=== PATIENT | female | born 1985 | race Hispanic/Latino ===

== ENCOUNTER 2020-09-24 11:45 | Emergency (ER) | payer SELFPAY ==
--- NOTE | 2020-09-24 14:07 | ER ---
Nurse's Notes [facility] Name: Brigid Maurice Age: 34 yrs Sex: Female : 1985 Arrival Date: 09/24/2020 Time: 11:47 Bed Waiting Private MD: Diagnosis: Presentation: 09/24 11:58 Chief complaint: Patient states: Constant, non-radiating chest pain x 3 days with SOB, jl7 hurts more with inspiration. Coronavirus screen: Client denies travel out of the [place] in the last 14 days. shortness of breath, Client presents with at least one sign or symptom that may indicate coronavirus-19. Standard/surgical mask placed on the client. Provider contacted for isolation considerations. Ebola Screen: No symptoms or risks identified at this time. Initial Sepsis Screen: Does the patient meet any 2 criteria? No. Patient's initial sepsis screen is negative. Does the patient have a suspected source of infection? No. Patient's initial sepsis screen is negative. Risk Assessment: Do you want to hurt yourself or someone else? Patient reports no desire to harm self or others. Onset of symptoms was September 21, 2020. Care prior to arrival: None. 11:58 Method Of Arrival: Ambulatory [facility] 11:58 Acuity: BRENDAN 3 jl7 Triage Assessment: 12:06 General: Appears in no apparent distress. uncomfortable, Behavior is calm, cooperative. jl7 Pain: Complains of pain in anterior aspect of left upper chest Pain does not radiate. Pain currently is 10 out of 10 on a pain scale. Quality of pain is described as sharp, Pain began 2-3 days ago. Is continuous. Respiratory: Reports shortness of breath at rest Airway is patent Respiratory effort is even, unlabored, Respiratory pattern is regular, symmetrical, Onset: The symptoms/episode began/occurred x 3 days, the patient has mild shortness of breath. WATCH CASER: 12:06 LMP 08/23/2020 jl7 Historical: - Allergies: 12:06 PENICILLINS; jl7 - Home Meds: 12:06 None [Active]; jl7 - PMHx: 12:06 None; jl7 - PSHx: 12:06 abdominal sx; jl7 - Immunization history:: Adult Immunizations not up to date. - Social history:: Smoking status: Patient denies any tobacco usage or history of. Vital Signs: 11:58 BP 105 / 61; Pulse 75; Resp 17; Temp 97.6; Pulse Ox 100% ; Weight 54.43 kg; Height 5 jl7 ft. 2 in. (157.48 cm); Pain 10/10; 11:58 Body Mass Index 21.95 (54.43 kg, 157.48 cm) jl7 ED Course: 11:47 Patient arrived in ED. ag5 12:06 Triage completed. jl7 12:06 Arm band placed on right wrist. 7 13:13 Douglas Goodson PA is PHCP. farheen 13:13 Jonah Craft MD is Attending Physician. [facility] 14:06 Patient's name was called from ER lobby. No response. Unable to locate patient. Will jl disposition as left without being seen by a provider. Administered Medications: No medications were administered Outcome: 14:07 Patient left the ED. jl7 Signatures: Douglas Goodson PA PA jmm Leal, Jahala, RN RN jl7 Aron Ji [facility]
[2020-09-25 10:51] VITALS: BP 105/61; TEMP 97.6; O2SAT 100
== END 2020-09-24 14:07 | disposition left against medical advice (07) ==
LOC: ER 11:45
DX: Z53.21 Procedure and treatment not carried out due to patient leaving prior to being seen by health care provider (principal)
CPT/HCPCS: 93005; 99281

== ENCOUNTER 2020-10-20 13:28 | Emergency (ER) | payer SELFPAY ==
[2020-10-20 15:02] LABS: SARS-COV-2 RT PCR NEGATIVE (NEGATIVE)
[2020-10-20 15:53] LABS: Absolute Lymphocytes (CBC) 1.7 K/uL (0.7-4.9); Basophils % 0.5 % (0-1.3); Lymphocytes % 31.4 % (15.3-44.8); MPV 9.7 fL (7.6-11.3); RBC Red Blood Cell Count 4.26 M/uL (3.86-4.86)
[2020-10-20 16:00] LABS: BUN Blood Urea Nitrogen 10 mg/dL (7-18); Bicarbonate 28 mmol/L (21-32); Glucose Level 78 mg/dL (74-106); Potassium 3.6 mmol/L (3.5-5.1); Sodium Level 142 mmol/L (136-145)
[2020-10-20] MEDS ORDERED: KETOROLAC 30 MG/ML INJ ONE (16:31)
[2020-10-20] MEDS ORDERED: METOCLOPRAMIDE 10 MG/2mL INJ ONE (16:31)
[2020-10-20] MEDS ORDERED: NA CHLORIDE 0.9% 1,000 ML ONE (16:31)
[2020-10-20] MEDS ORDERED: DIPHENHYDRAMINE 50 MG/ML VIAL ONE (16:32)
--- NOTE | 2020-10-20 17:20 | EDPHYS ---
Physician Documentation [facility] Name: Brigid Maurice Age: 34 yrs Sex: Female : 1985 Arrival Date: 10/20/2020 Time: 13:34 Bed 24 Private MD: Mando Magallanes W ED Physician Cristian Marvin HPI: 10/20 16:38 This 34 yrs old Female presents to ER via Ambulatory with complaints of kb Headache. 16:38 The patient complains of pain to the forehead. The patient describes the headache as kb constant. Onset: The symptoms/episode began/occurred yesterday. Associated signs and symptoms: Pertinent positives: dizziness. Severity of symptoms: At its worst the pain was mild, moderate, in the emergency department the pain is unchanged. Headache History: Denies prior headaches. The symptoms are alleviated by nothing. the symptoms are aggravated by nothing. The patient has not experienced similar symptoms in the past. The patient has not recently seen a physician. Pt reports headache, decreased appetite, fatigue, lightheadedness since yesterday. Historical: - Allergies: 13:46 PENICILLINS; ss - Home Meds: 13:46 None [Active]; ss - PMHx: 13:46 None; ss - PSHx: 13:46 abdominal sx; ss - Immunization history:: Adult Immunizations not up to date. - Social history:: Smoking status: Patient denies any tobacco usage or history of. ROS: 16:37 Cardiovascular: Negative for chest pain, palpitations, and edema, Respiratory: Negative kb for shortness of breath, cough, wheezing, and pleuritic chest pain, Abdomen/GI: Negative for abdominal pain, nausea, vomiting, diarrhea, and constipation, Back: Negative for injury and pain, MS/Extremity: Negative for injury and deformity, Skin: Negative for injury, rash, and discoloration. 16:37 Neuro: Positive for dizziness, headache. 16:37 Constitutional: Positive for fatigue, poor PO intake. kb Exam: 16:38 Constitutional: This is a well developed, well nourished patient who is awake, alert, kb and in no acute distress. Head/Face: Normocephalic, atraumatic. Chest/axilla: Normal chest wall appearance and motion. Nontender with no deformity. No lesions are appreciated. Cardiovascular: Regular rate and rhythm with a normal S1 and S2. No gallops, murmurs, or rubs. Normal PMI, no JVD. No pulse deficits. Respiratory: Lungs have equal breath sounds bilaterally, clear to auscultation and percussion. No rales, rhonchi or wheezes noted. No increased work of breathing, no retractions or nasal flaring. Abdomen/GI: Soft, non-tender, with normal bowel sounds. No distension or tympany. No guarding or rebound. No evidence of tenderness throughout. Skin: Warm, dry with normal turgor. Normal color with no rashes, no lesions, and no evidence of cellulitis. MS/ Extremity: Pulses equal, no cyanosis. Neurovascular intact. Full, normal range of motion. Neuro: Awake and alert, GCS 15, oriented to person, place, time, and situation. Cranial nerves II-XII grossly intact. Motor strength 5/5 in all extremities. Sensory grossly intact. Cerebellar exam normal. Normal gait. Vital Signs: 13:44 BP 113 / 73; Pulse 67; Resp 14; Temp 98.2(TE); Pulse Ox 99% on R/A; Weight 54.43 kg; ss Height 5 ft. 2 in. (157.48 cm); Pain 7/10; 15:45 BP 105 / 78 Supine; Pulse 58; vg1 15:47 BP 119 / 85 Sitting; Pulse 58; vg1 15:49 BP 128 / 89 Standing; Pulse 63; vg1 16:00 BP 131 / 89; Pulse 67; Resp 16; Pulse Ox 100% on R/A; vg1 17:00 BP 114 / 81; Pulse 66; Resp 16; Pulse Ox 100% on R/A; vg1 13:44 Body Mass Index 21.95 (54.43 kg, 157.48 cm) Abigail Coma Score: 16:38 Eye Response: spontaneous(4). Verbal Response: oriented(5). Motor Response: obeys kb commands(6). Total: 15. MDM: 14:35 Patient medically screened. kb 16:38 Data reviewed: vital signs, nurses notes. Data interpreted: Pulse oximetry: on room air kb is 99 %. Interpretation: normal. 17:19 Counseling: I had a detailed discussion with the patient and/or guardian regarding: the kb historical points, exam findings, and any diagnostic results supporting the discharge/admit diagnosis, lab results, the need for outpatient follow up, a family practitioner, to return to the emergency department if symptoms worsen or persist or if there are any questions or concerns that arise at home. Response to treatment: the patient's symptoms have resolved after treatment, the patient's pain is gone. 10/20 15:02 Order name: COVID-19/FLU A+B; Complete Time: 15:04 EDMS 10/20 15:13 Order name: CBC with Diff; Complete Time: 16:16 kb 10/20 15:13 Order name: Basic Metabolic Panel; Complete Time: 16:05 kb 10/20 15:13 Order name: IV Start; Complete Time: 15:40 kb 10/20 15:13 Order name: Orthostatics; Complete Time: 16:08 kb Administered Medications: 16:31 Drug: NS 0.9% 1000 ml Route: IV; Rate: 1000 ml; Site: right antecubital; vg1 17:55 Follow up: IV Status: Completed infusion vg1 16:31 Drug: TORadol 30 mg Route: IVP; Site: right antecubital; vg1 17:55 Follow up: Response: No adverse reaction; Pain is decreased vg1 16:31 Drug: Reglan 10 mg Route: IVP; Site: right antecubital; vg1 17:55 Follow up: Response: No adverse reaction vg1 16:31 Drug: Benadryl 12.5 mg Route: IVP; Site: right antecubital; vg1 17:55 Follow up: Response: No adverse reaction vg1 Disposition: 18:41 Co-signature as Attending Physician, Cristian Marvin MD I agree with the assessment and [facility] plan of care. Disposition: 10/20/20 17:20 Discharged to Home. Impression: Headache. - Condition is Stable. - Discharge Instructions: General Headache Without Cause, [id number]. - Medication Reconciliation Form, Thank You Letter, Antibiotic Education, Prescription Opioid Use form. - Follow up: Emergency Department; When: As needed; Reason: Worsening of condition. Follow up: Private Physician; When: 2 - 3 days; Reason: Recheck today's complaints, Continuance of care, Re-evaluation by your physician. Signatures: Dispatcher [employer] EDLawanda Zaragoza, MARKETING PROGRAMS SPECIALIST-C MARISA-Ckb YonCristian MD MD cha Smirch, Shelby, RN RN Jade Ochoa RN RN vg1 Corrections: (The following items were deleted from the chart) 14:16 13:50 Influenza Screen (A \T\ B)+BA.LAB.BRZ ordered. EDMS EDMS 14:16 13:50 CORONAVIRUS+MR.LAB.BRZ ordered. EDMS EDMS 16:38 16:37 Constitutional: Negative for fever, chills, and weight loss, Cardiovascular: kb Negative for chest pain, palpitations, and edema, Respiratory: Negative for shortness of breath, cough, wheezing, and pleuritic chest pain, Abdomen/GI: Negative for abdominal pain, nausea, vomiting, diarrhea, and constipation, Back: Negative for injury and pain, MS/Extremity: Negative for injury and deformity, Skin: Negative for injury, rash, and discoloration, kb 17:58 17:20 10/20/2020 17:20 Discharged to Home. Impression: Headache. Condition is Stable. vg1 Forms are Medication Reconciliation Form, Thank You Letter, Antibiotic Education, Prescription Opioid Use. Follow up: Emergency Department; When: As needed; Reason: Worsening of condition. Follow up: Private Physician; When: 2 - 3 days; Reason: Recheck today's complaints, Continuance of care, Re-evaluation by your physician. kb
--- NOTE | 2020-10-20 17:20 | ER ---
Nurse's Notes [facility] Name: Brigid Maurice Age: 34 yrs Sex: Female : 1985 Arrival Date: 10/20/2020 Time: 13:34 Bed 24 Private MD: Mando Magallanes W Diagnosis: Headache Presentation: 10/20 13:44 Chief complaint: Patient states: headache, fatigue, decreased appetite and ss lightheadedness that began yesterday. Coronavirus screen: Client denies travel out of the [place] in the last 14 days. Client presents with at least one sign or symptom that may indicate coronavirus-19. Standard/surgical mask placed on the client. Ebola Screen: Patient denies exposure to infectious person. Patient denies travel to an Ebola-affected area in the 21 days before illness onset. Initial Sepsis Screen: Does the patient meet any 2 criteria? No. Patient's initial sepsis screen is negative. Does the patient have a suspected source of infection? No. Patient's initial sepsis screen is negative. Risk Assessment: Do you want to hurt yourself or someone else? Patient reports no desire to harm self or others. Onset of symptoms was October 19, 2020. 13:44 Method Of Arrival: Ambulatory ss 13:44 Acuity: BRENDAN 3 ss Historical: - Allergies: 13:46 PENICILLINS; ss - Home Meds: 13:46 None [Active]; ss - PMHx: 13:46 None; ss - PSHx: 13:46 abdominal sx; ss - Immunization history:: Adult Immunizations not up to date. - Social history:: Smoking status: Patient denies any tobacco usage or history of. Screenin:40 Abuse screen: Denies threats or abuse. Nutritional screening: No deficits noted. vg1 Tuberculosis screening: No symptoms or risk factors identified. Fall Risk None identified. Assessment: 15:40 General: Appears in no apparent distress. comfortable, Behavior is calm, cooperative. vg1 15:40 Pain: Complains of pain in headache. Pain currently is 9 out of 10 on a pain scale. vg1 Pain began 2-3 days ago. Neuro: Level of Consciousness is awake, alert, obeys commands, Oriented to person, place, time, situation. Neuro: Reports dizziness, since for about 2 days. Cardiovascular: Patient's skin is warm and dry. Respiratory: Airway is patent Respiratory effort is even, unlabored, Respiratory pattern is regular, symmetrical. GI: Reports nausea, loss of appetite. : No signs and/or symptoms were reported regarding the genitourinary system. EENT: No signs and/or symptoms were reported regarding the EENT system. Derm: Skin is intact, is healthy with good turgor. Musculoskeletal: Circulation, motion, and sensation intact. 16:50 Reassessment: Patient appears in no apparent distress at this time. Patient and/or vg1 family updated on plan of care and expected duration. Pain level reassessed. Patient is alert, oriented x 3, equal unlabored respirations, skin warm/dry/pink. Patient states feeling better. 17:56 Reassessment: No changes from previously documented assessment. vg1 Vital Signs: 13:44 BP 113 / 73; Pulse 67; Resp 14; Temp 98.2(TE); Pulse Ox 99% on R/A; Weight 54.43 kg; ss Height 5 ft. 2 in. (157.48 cm); Pain 7/10; 15:45 BP 105 / 78 Supine; Pulse 58; vg1 15:47 BP 119 / 85 Sitting; Pulse 58; vg1 15:49 BP 128 / 89 Standing; Pulse 63; vg1 16:00 BP 131 / 89; Pulse 67; Resp 16; Pulse Ox 100% on R/A; vg1 17:00 BP 114 / 81; Pulse 66; Resp 16; Pulse Ox 100% on R/A; vg1 13:44 Body Mass Index 21.95 (54.43 kg, 157.48 cm) ss Paxinos Coma Score: 16:38 Eye Response: spontaneous(4). Verbal Response: oriented(5). Motor Response: obeys kb commands(6). Total: 15. ED Course: 13:34 Patient arrived in ED. ag5 13:34 Mando Magallanes MD is Private Physician. ag5 13:45 Triage completed. ss 13:46 Arm band placed on right wrist. ss 13:48 Lawanda Holman FNP-C is [facility]. kb 13:48 Cristian Marvin MD is Attending Physician. kb 15:03 Jade Madden, TYSON is Primary Nurse. vg1 15:35 Initial lab(s) drawn, by me, sent to lab. Inserted saline lock: 20 gauge in right jp3 antecubital area, using aseptic technique. Blood collected. 15:35 Patient maintains SpO2 saturation greater than 95% on room air. jp3 15:39 Bed in low position. Call light in reach. Side rails up X 1. Verbal reassurance given. jp3 Pulse ox on. NIBP on. 17:57 No provider procedures requiring assistance completed. IV discontinued, intact, vg1 bleeding controlled, No redness/swelling at site. Pressure dressing applied. Administered Medications: 16:31 Drug: NS 0.9% 1000 ml Route: IV; Rate: 1000 ml; Site: right antecubital; vg1 17:55 Follow up: IV Status: Completed infusion vg1 16:31 Drug: TORadol 30 mg Route: IVP; Site: right antecubital; vg1 17:55 Follow up: Response: No adverse reaction; Pain is decreased vg1 16:31 Drug: Reglan 10 mg Route: IVP; Site: right antecubital; vg1 17:55 Follow up: Response: No adverse reaction vg1 16:31 Drug: Benadryl 12.5 mg Route: IVP; Site: right antecubital; vg1 17:55 Follow up: Response: No adverse reaction vg1 Outcome: 17:20 Discharge ordered by MD. santoyo 17:57 Discharged to home ambulatory. vg1 17:57 Condition: stable 17:57 Discharge instructions given to patient, Instructed on discharge instructions, follow up and referral plans. Demonstrated understanding of instructions, follow-up care. 17:58 Patient left the ED. vg1 Signatures: Lawanda Holman, KIANAC COMEDIAN-Brisa Campos, RN RN Royer Little 3 Aron Ji Jade Kurtz, RN RN vg1
[2020-10-20 18:03] VITALS: TEMP 98.2
[2020-10-20 18:07] VITALS: O2SAT 100
[2020-10-20 18:08] VITALS: BP 114/81
== END 2020-10-20 17:58 | disposition home or self-care (01) ==
LOC: ER 13:28
DX: R51.9 Headache, unspecified (principal); Z20.822 Contact with and (suspected) exposure to COVID-19; Z88.0 Allergy status to penicillin
CPT/HCPCS: 0240U; 36415; 80048; 85025; 96361; 96374; 96375; 99284; J1200; J2765; J7030

== ENCOUNTER 2021-09-04 16:31 | Inpatient (IN) | payer SELFPAY ==
[2021-09-04 17:58] LABS: Basophils % 0.6 % (0-1.3); Hematocrit 41.3 % (36.0-45.0); Lymphocytes % 34.5 % (15.3-44.8); MPV 8.7 fL (7.6-11.3); RBC Red Blood Cell Count 4.73 M/uL (3.86-4.86)
[2021-09-04 18:19] LABS: ALT/SGPT 27 U/L (12-78); AST/SGOT 22 U/L (15-37); Albumin 3.9 g/dL (3.4-5.0); Alkaline Phosphatase 65 U/L (45-117); BUN Blood Urea Nitrogen 11 mg/dL (7-18); Bicarbonate 27 mmol/L (21-32); Bilirubin Direct < 0.1 mg/dL (0-0.2); Bilirubin Total 0.2 mg/dL (0.2-1.0); Glucose Level 86 mg/dL (74-106); Lipase 148 U/L (73-393); Potassium 3.3 mmol/L (3.5-5.1); Protein, Total 7.9 g/dL (6.4-8.2); Sodium Level 141 mmol/L (136-145)
--- NOTE | 2021-09-04 18:52 | RAD REPORT ---
EXAM DESCRIPTION: CTAbdomen Pelvis W Contrast - 09/04/2021 6:40 pm CLINICAL HISTORY: ABD PAIN COMPARISON: No comparisons TECHNIQUE: CT of the abdomen and pelvis was performed. All CT scans are performed using dose optimization technique as appropriate and may include automated exposure control or mA/KV adjustment according to patient size. FINDINGS: Lower chest: No acute abnormality. Liver: No acute abnormality or suspicious lesions. Biliary: Cholelithiasis. Stomach: No significant focal abnormality. Duodenum: No significant focal abnormality. Pancreas: No significant abnormality. Spleen: No significant abnormality. Adrenal: No suspicious lesions. Kidney/ureter: No hydronephrosis. No renal calculi. Retroperitoneum: No retroperitoneal adenopathy. Vascular: No aneurysm. Bowel: No significant focal abnormality. Normal appendix. Peritoneum: No ascites or free air. Bladder: Grossly unremarkable. Reproductive: No adnexal masses. Bones: No acute fracture. Other: n/a IMPRESSION: No acute intra-abdominal or pelvic finding. Normal appendix.
[2021-09-04 19:25] LABS: SARS-COV-2 RT PCR NEGATIVE (NEGATIVE)
[2021-09-04 19:51] LABS: Urine Blood Trace-intact (Negative); Urine Glucose Negative (Negative); Urine Protein Negative (Negative)
[2021-09-04] MEDS ORDERED: FAMOTIDINE 20 MG/2 ML VIAL IV ONE (20:23)
[2021-09-04] MEDS ORDERED: MORPHINE 2 MG/ML SYR ONE ×3 (20:23→22:45)
[2021-09-04] MEDS ORDERED: ONDANSETRON 4 MG/2 ML VIAL ONE (20:23)
[2021-09-04] MEDS ORDERED: NA CHLORIDE 0.9% 1,000 ML ONE (20:24)
--- NOTE | 2021-09-04 21:34 | RAD REPORT ---
EXAM DESCRIPTION: US - Abdomen Exam Limited - 09/04/2021 9:09 pm CLINICAL HISTORY: RUQ;Abd pain COMPARISON: Abdomen Pelvis W Contrast dated 09/04/2021 FINDINGS: Cholelithiasis is present. The family consumer science teacher reported a positive sonographic Malin's sign. The gallbladder wall measures 3 millimeters and is borderline thickened. The gallbladder is relativel y decompressed, however. The common bile duct is normal in caliber measuring 2 millimeters . IMPRESSION: Cholelithiasis. A positive sonographic Malin's sign is present which is sensitive but n onspecific for acute cholecystitis. Correlate with laboratory values and symptoms. If there is persis tent clinical concern, could consider HIDA scan.
[2021-09-04] MEDS ORDERED: Levofloxacin500mg IV 500 MG/100 ML BAG IV ONE (21:58)
[2021-09-04] MEDS ORDERED: METRONIDAZOLE 500mg IVPB 500 MG/100 ML BAG IV ONE (21:59)
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
[2021-09-05] MEDS ORDERED: ONDANSETRON 4 MG/2 ML VIAL IV PRN (00:12)
[2021-09-05] MEDS ORDERED: ACETAMINOPHEN 500 MG TAB PO PRN (00:12)
[2021-09-05] MEDS ORDERED: POTASSIUM CL SA 10 MEQ TAB PO ONE (00:13)
[2021-09-05 00:32] VITALS: BMI 19.5
[2021-09-05] MEDS: NA CHLORIDE 0.9% 1,000 ML IV SCH ×3 (00:57→21:23)
[2021-09-05 04:00] LABS: Basophils % 0.6 % (0-1.3); Hematocrit 35.4 % (36.0-45.0); Lymphocytes % 37.4 % (15.3-44.8); MPV 8.8 fL (7.6-11.3); RBC Red Blood Cell Count 4.01 M/uL (3.86-4.86)
[2021-09-05] MEDS: MORPHINE 2 MG/ML SYR IV PRN ×2 (04:10→08:41)
[2021-09-05 04:31] LABS: ALT/SGPT 21 U/L (12-78); AST/SGOT 16 U/L (15-37); Alkaline Phosphatase 46 U/L (45-117); BUN Blood Urea Nitrogen 6 mg/dL (7-18); Bicarbonate 25 mmol/L (21-32); Bilirubin Total 0.3 mg/dL (0.2-1.0); Glucose Level 83 mg/dL (74-106); Magnesium 2.1 mg/dL (1.8-2.4); Phosphorus 2.7 mg/dL (2.5-4.9); Protein, Total 6.4 g/dL (6.4-8.2); Sodium Level 140 mmol/L (136-145)
[2021-09-05] MEDS: METRONIDAZOLE 500mg IVPB 500 MG/100 ML BAG IV SCH ×3 (05:44→16:46)
[2021-09-05] MEDS ORDERED: BUPIVACAINE 0.5% PF 10 ML VIAL ONE ×2 (08:49→11:14)
[2021-09-05] MEDS ORDERED: LIDOCAINE 1% MPF 5 ML VIAL ONE (09:02)
[2021-09-05] MEDS ORDERED: dexAMETHasone 4 MG/ML VIAL ONE (09:02)
[2021-09-05] MEDS ORDERED: propofoL 200 MG/20 ML VIAL IV ONE (09:02)
[2021-09-05] MEDS ORDERED: NEOSTIGMINE 1 MG/ML -5 ML ONE (09:02)
[2021-09-05] MEDS ORDERED: MIDAZOLAM HCL 2 MG/2 ML INJ ONE (09:02)
[2021-09-05] MEDS ORDERED: GLYCOPYRROLATE 0.2 MG/ML SYR ONE (09:02)
[2021-09-05] MEDS ORDERED: FENTANYL CITR 100 MCG/2 ML ONE (09:02)
[2021-09-05] MEDS ORDERED: Ringers Lactate 1,000 ML IV ONE ×2 (09:03→11:14)
[2021-09-05] MEDS ORDERED: ROCURONIUM 50 MG/5 ML VIAL IV ONE (09:03)
[2021-09-05] MEDS ORDERED: KETOROLAC 30 MG/ML INJ ONE (09:03)
[2021-09-05] MEDS ORDERED: CIPROFLOXACIN 400mg IV 400 MG/200 ML BAG IV ONE (09:40)
--- NOTE | 2021-09-05 10:55 | P.OP ---
Location Director: Patrick SCHOFIELD Preoperative diagnosis: Acute Cholecystitis and Cholelithiasis Postoperative diagnosis: same with extensive adhesions Primary procedure: Lap Heaven, possible Open Anesthesia: General Estimated blood loss: min Specimen: GB Findings: as above Complications: None Transferred to: Recovery Room Condition: Good
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
[2021-09-05] MEDS ORDERED: MEPERIDINE HCL 25 MG/ML SYR ONE (11:18)
--- NOTE | 2021-09-05 11:18 | OP ---
Date of Procedure: 09/05/2021 Surgeon: Michael Reynoso MD Reducing Machine Operator: Patrick Julien, surgical orderly certified. Postoperative Diagnoses: Acute cholecystitis and cholelithiasis. Postoperative Diagnoses: Acute cholecystitis and cholelithiasis with extensive adhesions. Procedure Performed: Laparoscopic cholecystectomy and lysis of adhesions. Estimated Blood Loss: Minimal. Specimen: Gallbladder. Finding: As above. Anesthesia: General. Complications: None. Disposition: The patient tolerated the procedure in stable condition and taken to Recovery in good g eneral condition. Procedure In Detail: The patient was brought to the OR and placed in supine position. General anest hesia begun. The patient was prepped and draped in usual sterile fashion. Marcaine 0.5% was infiltr ated locally. A 15-blade was used to make a 1 cm right upper quadrant epigastric incision just to th e right of midline because the patient had previous exploratory laparotomy and had a midline scar, so I tried to avoid adhesions possible. Subsequently, the subcutaneous tissue divided. Fascia identif ied and divided. A #1 Vicryl stay suture was placed. Peritoneal cavity entered with sharp and blunt dissection. A 12 mm trocar was placed into the peritoneal cavity and then laparoscopy revealed exte nsive adhesions in the right upper quadrant as well as in the midline. A 5 mm trocar was placed in t he right upper quadrant and then LigaSure was utilized to take down all the adhesions and then anothe r 5 mm trocar was placed in the right paramedian region below the umbilicus and the camera was switch ed to that port and then more to lyse the adhesion was done to expose the gallbladder. The patient a lso has received adhesions as well. They were taken down with cautery. Bleeding was controlled with cautery. The fundus was finally identified and there were findings consistent with acute cholecysti tis. Fundus retracted superiorly. Infundibulum was identified and retracted inferolaterally. Cysti c duct and cystic artery were clearly identified with blunt dissection. Clips were placed. Both str uctures were divided. Cautery was used to remove the gallbladder from the liver bed. Bleeding on th e liver bed was controlled with cautery. Gallbladder was retrieved through the umbilicus via the epi gastric wounds via EndoCatch bag and then right upper quadrant examined and irrigated. Effluent colin r. No evidence of bleeding or bile leakage appreciated. Subsequently, all trocars were removed unde r direct vision. Stay sutures were tied to each other across the fascial defect. Subcutaneous tissu e was irrigated. Bleeding controlled with cautery. A 3-0 chromic used to approximate the subcutaneo us tissue and close the skin. Sterile dressing applied. The patient [facility]. JUAN/MELQUIADES Voice ID: [id number] Report ID: [id number]
[2021-09-05] MEDS ORDERED: ONDANSETRON 4 MG/2 ML VIAL ONE (11:22)
[2021-09-05] MEDS: ONDANSETRON 4 MG/2 ML VIAL IV PRN (11:23)
[2021-09-05] MEDS ORDERED: HYDROMORPHONE HCL 1 MG/ML INJ ONE (11:31)
[2021-09-05] MEDS ORDERED: PROMETHAZINE INJ 25 MG/ML AMP ONE (11:31)
[2021-09-05] MEDS: HYDROMORPHONE HCL 1 MG/ML INJ IV PRN ×4 (11:38→21:22)
--- NOTE | 2021-09-05 12:51 | P.PN ---
Date of Service: 09/05/21 Subjective: Continues with abdominal pain, and nausea No significant change, temporary relief with morphine Awaiting go to the OR this morning. ROS: 10 point ROS as noted above, otherwise negative Physical exam GEN: Alert, oriented, appears somewhat uncomfortable HEENT: Normal conjunctiva, sclera anicteric CV: Regular rate and rhythm, no edema Pulm: Nonlabored respirations on room air ABD: Moderate tenderness in the right upper quadrant, no rebound MSK: No joint tenderness Integumentary: No rashes Neuro: Normal speech, normal affect Problem List Symptomatic cholelithiasis, possible acute cholecystitis N.p.o., IV fluids IV antibiotics General surgery consulted, plan to take patient to the OR this morning SCDs for now Pain medication as needed VTE: SCDs Code: Full Dispo: anticipate dc home in 1-2 days Time Spent Managing Pts Care (In Minutes): 35
[2021-09-05] MEDS ORDERED: CEPACOL LOZENGES PO PRN (13:00)
[2021-09-05] MEDS ORDERED: INFLUENZA VACCINE (for 6+ mo) 0.5 ML DOSE IMVAC ONE (18:00)
[2021-09-05] MEDS: HYDROCODONE/APAP 7.5/325 MG TAB PO PRN (21:21)
[2021-09-05] MEDS: Levofloxacin 750mg IV 750 MG/150 ML BAG IV SCH (21:24)
[2021-09-06] MEDS: HYDROMORPHONE HCL 1 MG/ML INJ IV PRN ×5 (01:05→22:13)
[2021-09-06] MEDS: METRONIDAZOLE 500mg IVPB 500 MG/100 ML BAG IV SCH ×3 (01:07→17:58)
[2021-09-06 04:19] LABS: Absolute Lymphocytes (CBC) 1.7 K/uL (0.7-4.9); Basophils % 0.3 % (0-1.3); Hematocrit 35.3 % (36.0-45.0); Lymphocytes % 21.5 % (15.3-44.8); MPV 9.1 fL (7.6-11.3); RBC Red Blood Cell Count 3.96 M/uL (3.86-4.86)
[2021-09-06] MEDS: NA CHLORIDE 0.9% 1,000 ML IV SCH ×3 (05:35→16:12)
[2021-09-06] MEDS: HYDROCODONE/APAP 7.5/325 MG TAB PO PRN ×3 (05:48→18:06)
--- NOTE | 2021-09-06 06:14 | P.PN ---
Date of Service: 09/06/21 Subjective: Continues with pain in the epigastrium, similar to preoperative pain Slight nausea with sips of water No flatus, urinating without issue ROS: 10 point ROS as noted above, otherwise negative Physical exam GEN: Alert, oriented, appears uncomfortable HEENT: Normal conjunctiva, sclera anicteric CV: Regular rate and rhythm, no edema Pulm: Nonlabored respirations on room air ABD: Moderate tenderness in the epigastrium, surgical dressing C/D/I Neuro: Normal speech, normal affect Problem List acute cholecystitis s/p lap emilie Patient continues with pain, continue pain medication as needed Continue clear liquid diet, IV fluids Pain may be secondary to amount of lysis of adhesions, possibly from the insufflation Possibility of retained stone as well Check LFTs later today, expect slight increase in AST/ALT, if T bili or alk phos elevated will discuss with surgery Repeat in a.m. as well Dispo: Anticipate DC home in the next 1-2 days
--- NOTE | 2021-09-06 09:17 | PN ---
Date of Progress Note: 09/06/2021 Subjective: She is awake, alert, complaining of upper abdominal pain, tolerating some clear liquids. Requiring IV parenteral pain management at this time. No nausea or vomiting. Bowels are stable. Afebrile. Abdomen is soft. No peritonitis. Minimal tenderness in the epigastrium, right upper quadrant. Assessment: Status post laparoscopic cholecystectomy and lysis of adhesions. Recommendation: As patient is requiring parenteral pain medicine and had a lot of scar tissue in her belly, I would recommend that we continue pain management currently as needed, and encourage ambulat ion and incentive spirometry. Advance diet as tolerated and hopefully discharge in 24-48 hours. /MODL Voice ID: [id number] Report ID: [id number]
[2021-09-06] MEDS: ONDANSETRON 4 MG/2 ML VIAL IV PRN ×2 (11:59→22:12)
[2021-09-06 17:59] LABS: ALT/SGPT 32 U/L (12-78); AST/SGOT 39 U/L (15-37); Albumin 2.9 g/dL (3.4-5.0); Alkaline Phosphatase 39 U/L (45-117); BUN Blood Urea Nitrogen 4 mg/dL (7-18); Bicarbonate 25 mmol/L (21-32); Bilirubin Total 0.3 mg/dL (0.2-1.0); Glucose Level 101 mg/dL (74-106); Lipase 40 U/L (73-393); Potassium 3.4 mmol/L (3.5-5.1); Protein, Total 6.1 g/dL (6.4-8.2); Sodium Level 141 mmol/L (136-145)
[2021-09-06] MEDS: Levofloxacin 750mg IV 750 MG/150 ML BAG IV SCH (23:18)
[2021-09-07] MEDS ORDERED: PROMETHAZINE INJ 25 MG/ML AMP IM ONE (01:08)
[2021-09-07] MEDS: METRONIDAZOLE 500mg IVPB 500 MG/100 ML BAG IV SCH ×2 (01:16→09:33)
[2021-09-07 02:48] VITALS: O2SAT 99
[2021-09-07] MEDS: NA CHLORIDE 0.9% 1,000 ML IV SCH (05:15)
[2021-09-07 05:21] LABS: Absolute Lymphocytes (CBC) 1.2 K/uL (0.7-4.9); Basophils % 0.3 % (0-1.3); Hematocrit 32.3 % (36.0-45.0); Lymphocytes % 18.9 % (15.3-44.8); MPV 8.6 fL (7.6-11.3); RBC Red Blood Cell Count 3.67 M/uL (3.86-4.86)
[2021-09-07 05:48] LABS: ALT/SGPT 33 U/L (12-78); AST/SGOT 33 U/L (15-37); Albumin 2.8 g/dL (3.4-5.0); Alkaline Phosphatase 39 U/L (45-117); BUN Blood Urea Nitrogen 2 mg/dL (7-18); Bicarbonate 23 mmol/L (21-32); Bilirubin Total 0.4 mg/dL (0.2-1.0); Glucose Level 92 mg/dL (74-106); Magnesium 1.9 mg/dL (1.8-2.4); Potassium 3.8 mmol/L (3.5-5.1); Sodium Level 142 mmol/L (136-145)
[2021-09-07] MEDS ORDERED: POTASSIUM CL SA 10 MEQ TAB PO ONE (09:00)
[2021-09-07] MEDS: HYDROMORPHONE HCL 1 MG/ML INJ IV PRN ×2 (10:41→14:35)
--- NOTE | 2021-09-07 11:39 | PN ---
Date of Progress Note: 09/07/2021 Subjective: The patient is awake, alert. Pain is better, tolerating diet, ambulating. Pain control led on p.o. pain medications. Afebrile. We will recommend discharge for this patient. Objective: Vitals: Stable, afebrile. Abdomen: Benign. Dressing clean, dry, and intact. Assessment: Status post lap emilie. Plan: The patient is cleared from a surgery point of view for discharge. Please note the LFTs were essentially within normal limits. The patient to follow up with me in a week. Discharge instruction s given. /MODL Voice ID: [id number] Report ID: [id number]
--- NOTE | 2021-09-07 13:02 | P.DS ---
Admission Date: 09/06/21 Discharge Date: 09/07/21 Disposition: ROUTINE DISCHARGE Discharge Condition: GOOD Reason for Admission: cholelithiasis Consultations: General Surgery-Dr. Reynoso. Procedures: Lap cholecystectomy - Problems (1) Biliary colic Current Visit: Yes Status: Acute (2) Acute cholecystitis Current Visit: Yes Status: Acute Brief History of Present Illness: Ms. Maurice is a 35 yo F who presents with one week of 10/10 diffuse abdominal pain, localizing to the epigastric area after eating. She also reported night sweats, chills, nausea, vomiting, diarrhea, and lightheadedness and poor oral intake. Positive Malin sign and presence of gallstones on US. General surgery Dr. Reynoso was informed who recomended lap cholecystectomy. Patient hospitalized for further management. Hospital Course: Patient admitted to the medical floor and started on IV antibiotics-Flagyl and Levaquin. Patient seen by general surgery Dr. Reynoso who performed lap cholecystectomy and lysis of adhesions. Patient was managed postop as inpatient for pain management. She initially did not tolerate diet after the surgery. She required significant amount of IV opiates for pain control. Her symptoms improved and she later tolerated liquid diet. Patient seen in follow-up by general surgery Dr. Reynoso today and deemed stable for discharge. Vital Signs/Physical Exam: Temp Pulse Resp BP Pulse Ox 98.5 F 65 18 109/58 L 100 09/07/21 11:16 09/07/21 11:16 09/07/21 11:16 09/07/21 11:16 09/07/21 11:16 General: Alert, In no apparent distress HEENT: Mucous membr. moist/pink Neck: Supple, JVD not distended Respiratory: Clear to auscultation bilaterally, Normal air movement Cardiovascular: No edema, Regular rate/rhythm, Normal S1 S2 Gastrointestinal: Soft and benign, Non-distended, Tenderness (Moderate-mostly at the laparoscopic wound sites) Musculoskeletal: No swelling Integumentary: No rashes Neurological: Normal speech, Normal strength at 5/5 x4 extr Laboratory Data at Discharge: WBC 6.30 K/uL (4.3-10.9) D 09/07/21 05:01 Hgb 11.0 g/dL (12.0-15.0) L 09/07/21 05:01 Hct 32.3 % (36.0-45.0) L 09/07/21 05:01 Plt Count 134 K/uL (152-406) L 09/07/21 05:01 Sodium 142 mmol/L (136-145) 09/07/21 05:01 Potassium 3.8 mmol/L (3.5-5.1) 09/07/21 05:01 BUN 2 mg/dL (7-18) L 09/07/21 05:01 Creatinine 0.43 mg/dL (0.55-1.3) L 09/07/21 05:01 Glucose 92 mg/dL (74-106) 09/07/21 05:01 Phosphorus 2.7 mg/dL (2.5-4.9) 09/05/21 03:44 Magnesium 1.9 mg/dL (1.8-2.4) 09/07/21 05:01 Total Bilirubin 0.4 mg/dL (0.2-1.0) 09/07/21 05:01 AST 33 U/L (15-37) 09/07/21 05:01 ALT 33 U/L (12-78) 09/07/21 05:01 Alkaline Phosphatase 39 U/L (45-117) L 09/07/21 05:01 Lipase 40 U/L (73-393) L 09/06/21 17:26 Home Medications: NK [No Home Meds] 09/05/21 Physician Discharge Instructions: May shower Keep steri-strips on at all times Diet: Regular Activity: No lifting more than 10 lbs Followup: NONE,NONE [Primary Care Provider] - Michael Reynoso MD [ACTIVE - CAN ADMIT] - 1 Week Time spent managing pt's care (in minutes): 35
[2021-09-07 13:58] VITALS: BP 108/74; TEMP 98.3
== END 2021-09-07 17:29 | disposition home or self-care (01) | DRG 418 ==
LOC: ER 16:31 → ERHOLD 22:05 → 2ND 09-05 00:11 → OBSVTOIN 09-06 07:43
PROVIDERS: ADMIT Hospitalist; ATTEND Internal Medicine
PROC: 0DNW4ZZ Release Peritoneum, Percutaneous Endoscopic Approach (ICD-10-PCS; 2021-09-05)
PROC: 0FT44ZZ Resection of Gallbladder, Percutaneous Endoscopic Approach (ICD-10-PCS; principal; 2021-09-05 09:30)
DX: K80.00 Calculus of gallbladder with acute cholecystitis without obstruction (principal); K80.42 Calculus of bile duct with acute cholecystitis without obstruction; Z23 Encounter for immunization; Z88.0 Allergy status to penicillin; Z98.51 Tubal ligation status; Z88.5 Allergy status to narcotic agent; Z20.822 Contact with and (suspected) exposure to COVID-19
CPT/HCPCS: 0240U; 36415; 74177; 76705; 80048; 80053; 80076; 81003; 81025; 83690; 83735; 84100; 85025; 86308; 88304; 90471; 93005; 94010; 94760; 99285; G0378; J0744; J1100; J1170; J2175; J2250; J2270; J2405; J2550; J2704; J2710; J3010; J7030; J7120; Q2035; Q9967

== ENCOUNTER 2022-07-05 08:13 | Emergency (ER) | payer BC, SELFPAY ==
[2022-07-05] MEDS ORDERED: NA CHLORIDE 0.9% 1,000 ML ONE (08:50)
[2022-07-05] MEDS ORDERED: ONDANSETRON 4 MG/2 ML VIAL ONE (08:50)
[2022-07-05] MEDS ORDERED: FAMOTIDINE 20 MG/2 ML VIAL IV ONE (08:50)
[2022-07-05 09:15] LABS: Absolute Lymphocytes (CBC) 1.6 K/uL (0.7-4.9); Hematocrit 38.1 % (36.0-45.0); Lymphocytes % 32.7 % (15.3-44.8); MCV 88.3 fL (80-100); MPV 8.8 fL (7.6-11.3); RBC Red Blood Cell Count 4.31 M/uL (3.86-4.86)
[2022-07-05] MEDS ORDERED: MORPHINE 4 MG/ML SYR ONE (09:29)
[2022-07-05 09:53] LABS: Albumin 3.6 g/dL (3.4-5.0); Bilirubin Total 0.5 mg/dL (0.2-1.0); Protein, Total 7.2 g/dL (6.4-8.2)
[2022-07-05 10:00] LABS: Urine Blood Negative (Negative); Urine Glucose Negative (Negative); Urine Protein Negative (Negative)
[2022-07-05 10:14] LABS: Urine Mucus Slight /HPF (None Seen); Urine RBC <5 /HPF (None Seen)
--- NOTE | 2022-07-05 10:51 | RAD REPORT ---
EXAM DESCRIPTION: CTAbdomen Pelvis W Contrast - 07/05/2022 10:28 am CLINICAL HISTORY: RUQ pain COMPARISON: Abdomen Pelvis W Contrast dated 09/04/2021 TECHNIQUE: CT of the abdomen and pelvis was performed with IV contrast. All CT scans are performed using dose optimization technique as appropriate and may include automated exposure control or mA/KV adjustment according to patient size. FINDINGS: Lower chest: No acute abnormality. Liver: Periportal edema. Biliary: Cholecystectomy. Mild intrahepatic biliary ductal dilatation. The common bile duct measures 7 millimeters. This has increased from prior. Previously measured under 6 millimeters. Stomach: No significant focal abnormality. Duodenum: No significant focal abnormality. Pancreas: No significant abnormality. Spleen: No significant abnormality. Adrenal: No suspicious lesions. Kidney/ureter: No hydronephrosis. No renal calculi. Retroperitoneum: No retroperitoneal adenopathy. Vascular: No aneurysm. Bowel: No significant focal abnormality. Normal appendix. Peritoneum: Small volume of pelvic free fluid. Bladder: Grossly unremarkable. Reproductive: No adnexal masses. Bones: No acute fracture. Other: n/a IMPRESSION: Increased intra and extrahepatic biliary ductal dilatation. The patient is status post c holecystectomy. Correlate with LFTs. MRCP could further evaluate if there is concern for choledocholi thiasis. Normal appendix. Free fluid in the pelvis which is likely physiologic.
[2022-07-05] MEDS ORDERED: HYDROMORPHONE HCL 1 MG/ML INJ ONE (11:50)
[2022-07-05 12:42] LABS: SARS-CoV-2 Antigen Rapid Res Negative (Negative)
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
[2022-07-05] MEDS ORDERED: PROMETHAZINE INJ 25 MG/ML AMP ONE (16:06)
[2022-07-07 21:20] VITALS: TEMP 98.4
[2022-07-07 21:31] VITALS: BP 108/77; O2SAT 99
== END 2022-07-05 16:32 | disposition short-term general hospital (02) ==
LOC: ER 08:13
DX: R10.11 Right upper quadrant pain (principal); Z20.822 Contact with and (suspected) exposure to COVID-19; Z88.0 Allergy status to penicillin
CPT/HCPCS: 85025; 36415; 81025; 83690; 80053; 74177; 87811; Q9967; J2550; J1170; J7030; J2405; 81003; 81015; 96361; 96374; 96375; 99285

== ENCOUNTER 2022-08-03 16:39 | Emergency (ER) | payer BC ==
[2022-08-03] MEDS ORDERED: ONDANSETRON 4 MG/2 ML VIAL ONE (17:15)
[2022-08-03] MEDS ORDERED: NA CHLORIDE 0.9% 1,000 ML ONE (17:15)
[2022-08-03] MEDS ORDERED: FAMOTIDINE 20 MG/2 ML VIAL IV ONE (17:15)
[2022-08-03 17:50] LABS: Absolute Lymphocytes (CBC) 1.7 K/uL (0.7-4.9); Lymphocytes % 24.4 % (15.3-44.8); MCV 87.7 fL (80-100); MPV 8.7 fL (7.6-11.3); RBC Red Blood Cell Count 4.22 M/uL (3.86-4.86)
[2022-08-03 18:11] LABS: Albumin 3.7 g/dL (3.4-5.0); Bilirubin Total 0.3 mg/dL (0.2-1.0); Potassium 3.4 mmol/L (3.5-5.1); Protein, Total 7.6 g/dL (6.4-8.2)
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
[2022-08-03 18:54] VITALS: TEMP 97.5; O2SAT 100
[2022-08-03 19:00] VITALS: BP 112/92
== END 2022-08-03 18:40 | disposition home or self-care (01) ==
LOC: ER 16:39
DX: R10.11 Right upper quadrant pain (principal); Z88.0 Allergy status to penicillin
CPT/HCPCS: 85025; 36415; 83690; 80053; 96375; 96374; 99284; J7030; J2405

== ENCOUNTER 2022-09-04 10:28 | Emergency (ER) | payer BC ==
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
[2022-09-04] MEDS ORDERED: ONDANSETRON 4 MG (ODT) TAB ONE (10:56)
[2022-09-04] MEDS ORDERED: HYDROCODONE/APAP 7.5/325 MG TAB ONE (10:57)
[2022-09-04 11:39] VITALS: BP 113/79; TEMP 98.7; O2SAT 100
== END 2022-09-04 11:32 | disposition home or self-care (01) ==
LOC: ER 10:28
DX: K04.7 Periapical abscess without sinus (principal); Z88.0 Allergy status to penicillin
CPT/HCPCS: 99283; Q0162

== ENCOUNTER 2022-09-12 10:01 | Emergency (ER) | payer BC, SELFPAY ==
[2022-09-12 11:03] LABS: Urine Blood Trace-lysed (Negative); Urine Glucose Negative (Negative); Urine Protein Negative (Negative); Urine Specific Gravity >=1.030 (1.005-1.030); Urine pH 5.5 (5.0-7.0)
[2022-09-12] MEDS ORDERED: ONDANSETRON 4 MG/2 ML VIAL ONE ×4 (11:06→19:52)
[2022-09-12] MEDS ORDERED: MORPHINE 4 MG/ML SYR ONE ×4 (11:06→19:52)
[2022-09-12] MEDS ORDERED: NA CHLORIDE 0.9% 1,000 ML ONE (11:07)
[2022-09-12] MEDS ORDERED: FAMOTIDINE 20 MG/2 ML VIAL IV ONE (11:07)
[2022-09-12 11:32] LABS: Urine Specific Gravity/Preg >1.030 (1.005-1.030)
[2022-09-12 11:44] LABS: Absolute Lymphocytes (CBC) 2.2 K/uL (0.7-4.9); Hematocrit 35.4 % (36.0-45.0); Lymphocytes % 39.1 % (15.3-44.8); MPV 8.5 fL (7.6-11.3); RBC Red Blood Cell Count 4.07 M/uL (3.86-4.86)
[2022-09-12 12:05] LABS: Albumin 3.5 g/dL (3.4-5.0); Bilirubin Total 0.3 mg/dL (0.2-1.0); Potassium 3.7 mmol/L (3.5-5.1); Protein, Total 7.3 g/dL (6.4-8.2)
--- NOTE | 2022-09-12 12:57 | RAD REPORT ---
EXAM DESCRIPTION: CT - Abdomen Pelvis W Contrast - 09/12/2022 12:39 pm CLINICAL HISTORY: Abdominal pain COMPARISON: June 2022 TECHNIQUE: Computed axial tomography of the abdomen pelvis was obtained. 100 cc Isovue-300 was admin istered intravenously. Oral contrast was not requested which limits evaluation of bowel and appendix All CT scans are performed using dose optimization technique as appropriate and may include automated exposure control or mA/KV adjustment according to patient size. FINDINGS: Cholecystectomy Mild dilatation intra and extrahepatic biliary tree. The liver, spleen, pancreas, adrenal and kidneys appear unremarkable. There is no evidence of diverticulitis. Normal appendix. 2.3 centimeter right ovarian cyst with a small amount of free fluid. Moderate amount of stool within the colon IMPRESSION: Mild dilatation of the intra and extrahepatic biliary tree. This may be physiologic in t his patient status post cholecystectomy. Pathology such as a non visualized stone within the duct or stricture can also result in this appearance. This should be correlated clinically with appropriate l ab values. 2.3 centimeter right ovarian cyst with small amount of free fluid
--- NOTE | 2022-09-12 13:00 | RAD REPORT ---
EXAM DESCRIPTION: US - Abdomen Exam Limited - 09/12/2022 11:14 am CLINICAL HISTORY: ABD PAIN COMPARISON: Abdomen Pelvis W Contrast dated 07/05/2022 FINDINGS: Gallbladder is absent. No mass or abnormal fluid collection in the gallbladder fossa. Part ially imaged liver shows no suspicious finding. No ascites of the right upper quadrant. No common duct stone or biliary tree dilatation identified. IMPRESSION: Unremarkable post cholecystectomy right upper quadrant ultrasound.
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
[2022-09-12 16:08] LABS: SARS-CoV-2 Antigen Rapid Res Negative (Negative)
[2022-09-12 22:38] VITALS: TEMP 97.5
[2022-09-12 22:44] VITALS: O2SAT 100
[2022-09-12 23:00] VITALS: BP 104/70
== END 2022-09-12 19:56 | disposition short-term general hospital (02) ==
LOC: ER 10:01
DX: R10.13 Epigastric pain (principal); Z88.0 Allergy status to penicillin
CPT/HCPCS: 36415; 74177; 76705; 80053; 81003; 81025; 83690; 85025; 87811; 96361; 96374; 96375; 99285; J2405; J7030; Q9967

== ENCOUNTER 2022-09-18 18:12 | Emergency (ER) | payer SELFPAY ==
[2022-09-18 19:14] LABS: Absolute Lymphocytes (CBC) 1.5 K/uL (0.7-4.9); Hematocrit 34.7 % (36.0-45.0); Lymphocytes % 26.9 % (15.3-44.8); MPV 8.6 fL (7.6-11.3); RBC Red Blood Cell Count 3.99 M/uL (3.86-4.86)
--- NOTE | 2022-09-18 19:20 | RAD REPORT ---
EXAM DESCRIPTION: RAD - Chest Single View - 09/18/2022 7:14 pm CLINICAL HISTORY: CHEST PAIN COMPARISON: 04/08/2016 FINDINGS: Lines: None. Lungs: No evidence of edema or pneumonia. Pleural: No significant pleural effusions or pneumothorax. Cardiac: The heart size is within normal limits. Mediastinum: Within normal limits. Bones: No acute fractures. Other: None IMPRESSION: No acute cardiopulmonary disease.
[2022-09-18 19:33] LABS: Albumin 3.7 g/dL (3.4-5.0); Bilirubin Total 0.2 mg/dL (0.2-1.0); Potassium 3.5 mmol/L (3.5-5.1); Protein, Total 7.7 g/dL (6.4-8.2); Troponin High Sensitivity 7.3 pg/mL (<58.9)
[2022-09-18 19:55] LABS: Urine Blood Negative (Negative); Urine Glucose Negative (Negative); Urine Protein Negative (Negative)
--- NOTE | 2022-09-18 20:15 | RAD REPORT ---
EXAM DESCRIPTION: CT - Chest For Pe Angio - 09/18/2022 7:58 pm CLINICAL HISTORY: chest pain COMPARISON: No prior chest CT TECHNIQUE: Dynamically enhanced axial 3 mm thick images of the chest were obtained during administra tion of <100> mL Isovue 370 IV contrast. Coronal and oblique reconstruction images were generated and reviewed. Exam utilizes a protocol for optimal evaluation of pulmonary arterial tree. Maximum intensity projections 3D imaging was utilized All CT scans are performed using dose optimization technique as appropriate and may include automated exposure control or mA/KV adjustment according to patient size. FINDINGS: Chest Wall: No suspicious thyroid nodules or pathologic lymphadenopathy. Lungs: No acute abnormality. Pleura: No significant effusions or pneumothorax. Mediastinum/jia: No pathologic lymphadenopathy. Pulmonary arteries/Aorta: No filling defect identified. No aortic aneurysm. Heart: No significant pericardial effusion. Normal heart size. Upper abdomen: No acute abnormality.Pneumobilia. Bones: No acute abnormality. IMPRESSION: Negative for pulmonary embolism. No other acute findings are present in the chest.
[2022-09-18 20:16] LABS: Urine Bacteria <20 /HPF (<20)
[2022-09-18] MEDS ORDERED: MORPHINE 2 MG/ML SYR ONE (20:21)
--- NOTE | 2022-09-18 20:21 | RAD REPORT ---
EXAM DESCRIPTION: CTAbdomen Pelvis W Contrast - 09/18/2022 7:58 pm CLINICAL HISTORY: left upper abdomen pain COMPARISON: <Comparisons> TECHNIQUE: CT of the abdomen and pelvis was performed with IV contrast. All CT scans are performed using dose optimization technique as appropriate and may include automated exposure control or mA/KV adjustment according to patient size. FINDINGS: Lower chest: No acute abnormality. Liver: No acute abnormality or suspicious lesions. Biliary: Similar extrahepatic biliary duct dilatation. Pneumobilia. The extrahepatic common bile duct measures 8 millimeters. The duct at the pancreatic head is not well assessed. Stomach: No significant focal abnormality. Duodenum: No significant focal abnormality. Pancreas: No significant abnormality. Spleen: No significant abnormality. Adrenal: No suspicious lesions. Kidney/ureter: No hydronephrosis. No renal calculi. Retroperitoneum: No retroperitoneal adenopathy. Vascular: No aneurysm. Bowel: No significant focal abnormality. Normal appendix . Peritoneum: Trace free fluid which is likely physiologic. Bladder: Grossly unremarkable. Reproductive: No adnexal masses. Bones: No acute fracture. Other: n/a IMPRESSION: Status post cholecystectomy with similar extrahepatic biliary ductal dilatation. New tra ce pneumobilia. This could reflect changes of a prior sphincterotomy however infection could appear s imilar though is not favored. Correlate with LFTs. If abnormal, could consider MRCP or ERCP for furth er evaluation. Normal appendix.
[2022-09-18] MEDS ORDERED: HYDROMORPHONE HCL 0.5 MG/0.5 ML INJ ONE ×3 (20:43→23:19)
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
[2022-09-18 21:49] LABS: SARS-CoV-2 Antigen Rapid Res Negative (Negative)
[2022-09-18] MEDS ORDERED: NA CHLORIDE 0.9% 1,000 ML ONE (22:09)
[2022-09-18] MEDS ORDERED: CEFTRIAXONE 1000 MG/VIAL ONE (22:09)
[2022-09-18] MEDS ORDERED: METRONIDAZOLE 500mg IVPB 500 MG/100 ML BAG IV ONE (22:09)
[2022-09-18] MEDS ORDERED: NA CHLORIDE 0.9% 50 ML IV ONE (22:09)
[2022-09-18] MEDS ORDERED: PROMETHAZINE INJ 25 MG/ML AMP ONE (23:18)
[2022-09-19 00:52] VITALS: TEMP 98.1
[2022-09-19 00:53] VITALS: BP 145/67; O2SAT 99
--- NOTE | 2022-09-19 14:57 | EKG ---
Test Date: 2022-09-18 Test Time: 18:39:14 [place]: WILL MEASUREMENT RESULTS: Intervals: Rate: 77 MT: 168 QRSD: 82 QT: 370 QTc: 418 [place]: P: 74 MT: 168 QRS: 82 T: 69 INTERPRETIVE STATEMENTS: Normal sinus rhythm with sinus arrhythmia Normal ECG Compared to ECG 09/05/2021 04:09:49 Sinus bradycardia no longer present Electronically Signed On 09-19-22 14:55:16 MILITARY LAWYER by Ad Nguyen
== END 2022-09-18 23:47 | disposition home or self-care (01) ==
LOC: ER 18:12
DX: R10.11 Right upper quadrant pain (principal); Z20.822 Contact with and (suspected) exposure to COVID-19; Z88.0 Allergy status to penicillin; Z88.5 Allergy status to narcotic agent
CPT/HCPCS: 36415; 71045; 71275; 74177; 80053; 81003; 81015; 81025; 83605; 83690; 84145; 84484; 85025; 85379; 87040; 87811; 93005; 96361; 96365; 96375; 99284; J1170; J2270; J2550; J7030; Q9967

== ENCOUNTER 2022-12-21 11:20 | Emergency (ER) | payer OTHER, SELFPAY ==
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
[2022-12-21] MEDS ORDERED: IBUPROFEN 200 MG TAB PO ONE (13:07)
[2022-12-21] MEDS ORDERED: IBUPROFEN 400 MG TAB ONE (13:07)
[2022-12-21] MEDS ORDERED: CYCLOBENZAPRINE 10 MG TAB ONE (13:07)
[2022-12-21] MEDS ORDERED: HYDROCODONE/APAP 7.5/325 MG TAB ONE (13:07)
[2022-12-21 13:15] LABS: Absolute Lymphocytes (CBC) 1.7 K/uL (0.7-4.9); Hematocrit 40.1 % (36.0-45.0); MCV 85.4 fL (80-100); MPV 8.7 fL (7.6-11.3); RBC Red Blood Cell Count 4.69 M/uL (3.86-4.86)
[2022-12-21 13:21] LABS: Potassium 3.8 mmol/L (3.5-5.1)
[2022-12-21 14:26] LABS: Urine Blood Trace-intact (Negative); Urine Glucose Negative (Negative); Urine Protein Negative (Negative); Urine Specific Gravity 1.015 (1.005-1.030)
[2022-12-21 14:31] LABS: Urine Specific Gravity/Preg 1.015 (1.005-1.030)
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
[2022-12-21] MEDS ORDERED: TRAMADOL HCL 50 MG TAB ONE (15:14)
[2022-12-22 02:57] VITALS: TEMP 97.9
[2022-12-22 03:08] VITALS: BP 116/75; O2SAT 97
== END 2022-12-21 15:49 | disposition home or self-care (01) ==
LOC: ER 11:20
DX: M54.50 Low back pain, unspecified (principal); M79.18 Myalgia, other site; V89.2XXA Person injured in unspecified motor-vehicle accident, traffic, initial encounter; Z88.0 Allergy status to penicillin; Z88.5 Allergy status to narcotic agent
CPT/HCPCS: 36415; 71250; 74176; 80048; 81003; 81025; 85025; 86850; 86900; 86901

== ENCOUNTER 2022-12-29 21:13 | Emergency (ER) | payer SELFPAY ==
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
[2022-12-29 23:25] VITALS: TEMP 98.1; O2SAT 100
[2022-12-29 23:26] VITALS: BP 119/79
== END 2022-12-29 23:18 | disposition home or self-care (01) ==
LOC: ER 21:13
DX: F07.81 Postconcussional syndrome (principal); S16.1XXD Strain of muscle, fascia and tendon at neck level, subsequent encounter
CPT/HCPCS: 70450; 72125; 96374; 96375; 99284

== ENCOUNTER 2023-07-18 11:52 | Emergency (ER) | payer SELFPAY ==
[2023-07-18] MEDS ORDERED: IBUPROFEN 200 MG TAB PO ONE (12:57)
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
[2023-07-18 14:30] VITALS: TEMP 97.7
[2023-07-18 14:36] VITALS: BP 110/82; O2SAT 99
== END 2023-07-18 14:03 | disposition home or self-care (01) ==
LOC: ER 11:52
DX: S90.211A Contusion of right great toe with damage to nail, initial encounter (principal); Z88.0 Allergy status to penicillin; Z88.5 Allergy status to narcotic agent
CPT/HCPCS: 99283

== ENCOUNTER → 2023-11-06 | Emergency (ER) | payer SELFPAY ==
[~2023-11-06] MED LIST: HYDROCODONE/APAP 5/325 MG TAB ONE; KETOROLAC 30 MG/ML INJ ONE
[2023-11-06 09:35] LABS: Absolute Lymphocytes (CBC) 1.6 K/uL (0.7-4.9); Hematocrit 40.2 % (36.0-45.0); Lymphocytes % 26.3 % (15.3-44.8); MCV 88.2 fL (80-100); MPV 9.5 fL (7.6-11.3); Platelets 193 thou/uL (152-406); RBC Red Blood Cell Count 4.56 M/uL (3.86-4.86)
[2023-11-06 09:52] LABS: Albumin 3.8 g/dL (3.4-5.0); Bilirubin Total 0.4 mg/dL (0.2-1.0); Potassium 3.6 mEq/L (3.5-5.1); Protein, Total 7.6 g/dL (6.4-8.2)
--- NOTE | 2023-11-06 11:16 | RAD REPORT ---
EXAM DESCRIPTION: Arron Lees And Eligio (2 Views)11/06/2023 10:48 am CLINICAL HISTORY: Shortness breath COMPARISON: 2021 FINDINGS: Hyperaerated lungs. The lungs appear clear of acute infiltrate. The heart is normal size IMPRESSION: No acute abnormalities displayed
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
[2023-11-06 13:13] VITALS: BP 134/78; TEMP 97.7; O2SAT 99
== END ==
LOC: ER 09:07
DX: M79.10 Myalgia, unspecified site (principal)
CPT/HCPCS: 36415; 71046; 80053; 84484; 85025; 85379

== ENCOUNTER → 2023-11-11 | Emergency (ER) | payer SELFPAY ==
[~2023-11-11] MED LIST changes: -HYDROCODONE/APAP 5/325 MG TAB ONE
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
[2023-11-11 09:10] VITALS: BP 118/90; TEMP 97.9; O2SAT 100
== END ==
LOC: ER 07:27
DX: M54.16 Radiculopathy, lumbar region (principal)

== ENCOUNTER 2024-03-03 00:42 | Emergency (ER) | payer SELFPAY ==
[2024-03-03] MEDS ORDERED: ONDANSETRON 4 MG/2 ML VIAL ONE (01:12)
[2024-03-03] MEDS ORDERED: FAMOTIDINE 20 MG/2 ML VIAL IV ONE (01:13)
[2024-03-03] MEDS ORDERED: MAGNES/ALUMIN/SIMET 30ML UCUP ONE (01:13)
[2024-03-03] MEDS ORDERED: NA CHLORIDE 0.9% 1,000 ML ONE (01:13)
[2024-03-03 01:23] LABS: Absolute Eosinophils 0.1 K/uL (0-0.5); Absolute Lymphocytes (CBC) 2.3 K/uL (0.7-4.9); Absolute Monocytes 0.5 K/uL (0.1-1.3); Absolute Neutrophil 3.6 K/uL (1.8-8.0); Basophils % 0.5 % (0-1.3); Eosinophils % 1.2 % (0-4.4); Hematocrit 39.3 % (36.0-45.0); Hemoglobin 13.5 g/dL (12.0-15.0); Lymphocytes % 35.2 % (15.3-44.8); MCH 30.1 pg (27.0-35.0); MCHC 34.2 g/dL (32.0-36.0); MCV 87.9 fL (80-100); MPV 9.5 fL (7.6-11.3); Monocytes % 7.1 % (3.3-12.3); Nucleated Red Blood Cells % 0.2 % (0-0); Platelets 187 thou/uL (152-406); RBC Red Blood Cell Count 4.47 M/uL (3.86-4.86); Red Cell Distribution Width 13.9 % (12.1-15.2)
[2024-03-03] MEDS ORDERED: LIDOCAINE VISCOUS 2% 10ML ORAL SOLN ONE (01:32)
[2024-03-03 01:40] LABS: ALT/SGPT 16 U/L (13-56); Albumin 3.7 g/dL (3.4-5.0); Albumin/Globulin Ratio 1.1 (1.1-1.8); Alkaline Phosphatase 71 U/L (45-117); Anion Gap 8.3 mEq/L (5.0-15.0); BUN Blood Urea Nitrogen 10 mg/dL (7-18); Bicarbonate 25 mEq/L (21-32); Bilirubin Total 0.4 mg/dL (0.2-1.0); Globulin 3.5 g/dL (2.3-3.5); Glomerular Filtration Rate 115 ml/min (=/>90); Glucose Level 98 mg/dL (74-106); Lipase 48 U/L (13-75); Potassium 3.3 mEq/L (3.5-5.1); Protein, Total 7.2 g/dL (6.4-8.2); Sodium Level 139 mEq/L (136-145)
[2024-03-03 01:42] LABS: AST/SGOT < 10 U/L (15-37)
[2024-03-03 02:19] LABS: Specific Gravity 1.023 (1.005-1.030)
[2024-03-03 02:21] LABS: Specific Gravity 1.023 (1.005-1.030); Sqamous Epithelial <5 /HPF (None Seen); Urine Bacteria None Seen /HPF (<20); Urine Bilirubin NEGATIVE (Negative); Urine Blood Negative (Negative); Urine Clarity Turbid (Clear); Urine Color Light-Yellow (Yellow); Urine Culture Reflex Order NOT NEEDED; Urine Glucose NEGATIVE (Negative); Urine Ketones NEGATIVE (Negative); Urine Micro Reflex YN NO BILL MICROSCOPIC; Urine Mucus 1+ /HPF (None Seen); Urine Nitrite NEGATIVE (Negative); Urine Protein NEGATIVE (Negative); Urine RBC <5 /HPF (None Seen); Urine Urobilinogen Normal (Normal); Urine WBC <5 /HPF (<5); Urine pH 6.5 (5.0-7.0)
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
[2024-03-03 03:13] VITALS: BP 125/80; TEMP 98.2; O2SAT 100
== END 2024-03-03 02:51 | disposition home or self-care (01) ==
LOC: ER 00:42
DX: K29.00 Acute gastritis without bleeding (principal); E87.6 Hypokalemia
CPT/HCPCS: 36415; 80053; 81001; 81025; 83690; 85025; 96361; 96374; 96375; 99284; J2405; J7030

== ENCOUNTER 2024-05-28 07:56 | Emergency (ER) | payer SELFPAY ==
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
[2024-05-28] MEDS ORDERED: NA CHLORIDE 0.9% 1,000 ML ONE ×2 (08:57→11:07)
[2024-05-28] MEDS ORDERED: KETOROLAC 30 MG/ML INJ ONE (09:09)
--- NOTE | 2024-05-28 09:09 | RAD REPORT ---
EXAM DESCRIPTION: RAD - Chest Single View - 05/28/2024 8:57 am CLINICAL HISTORY: syncope Chest pain. COMPARISON: Chest Pa And Lat (2 Views) dated 11/06/2023; Chest Single View dated 09/18/2022; Chest Pa And Lat (2 Views) dated 04/08/2016; CHEST SINGLE VIEW dated 07/07/2015 FINDINGS: Portable technique limits examination quality. The lungs are grossly clear. The heart is normal in size. No displaced fractures. IMPRESSION: No acute intrathoracic process suspected.
[2024-05-28 09:13] LABS: Absolute Eosinophils 0.1 K/uL (0-0.5); Absolute Lymphocytes (CBC) 1.5 K/uL (0.7-4.9); Absolute Monocytes 0.4 K/uL (0.1-1.3); Absolute Neutrophil 5.2 K/uL (1.8-8.0); Basophils % 0.4 % (0-1.3); Eosinophils % 1.2 % (0-4.4); Hematocrit 41.9 % (36.0-45.0); Hemoglobin 13.9 g/dL (12.0-15.0); Lymphocytes % 21.2 % (15.3-44.8); MCH 29.8 pg (27.0-35.0); MCHC 33.3 g/dL (32.0-36.0); MCV 89.7 fL (80-100); Neutrophils % 71.2 % (41.7-73.7); Platelets 170 thou/uL (152-406); RBC Red Blood Cell Count 4.67 M/uL (3.86-4.86); Red Cell Distribution Width 13.5 % (12.1-15.2)
[2024-05-28 09:23] LABS: PTT, Activated Partial Thromb 41.4 SECONDS (24.3-36.9); Protime INR 1.17
[2024-05-28 09:35] LABS: AST/SGOT 13 U/L (15-37); Albumin 4.1 g/dL (3.4-5.0); Albumin/Globulin Ratio 1.1 (1.1-1.8); Alkaline Phosphatase 67 U/L (45-117); Anion Gap 9.3 mEq/L (5.0-15.0); BUN Blood Urea Nitrogen 12 mg/dL (7-18); Bicarbonate 25 mEq/L (21-32); Bilirubin Direct 0.2 mg/dL (0-0.2); Bilirubin Indirect, Calculated 0.6 mg/dL (0.2-0.8); Bilirubin Total 0.8 mg/dL (0.2-1.0); Globulin 3.6 g/dL (2.3-3.5); Glomerular Filtration Rate 118 ml/min (=/>90); Glucose Level 94 mg/dL (74-106); Potassium 3.3 mEq/L (3.5-5.1); Protein, Total 7.7 g/dL (6.4-8.2); Sodium Level 139 mEq/L (136-145); Troponin High Sensitivity 7.2 pg/mL (<58.9)
[2024-05-28 09:36] LABS: ALT/SGPT < 14 U/L (13-56)
[2024-05-28 10:19] LABS: Specific Gravity > 1.030 (1.005-1.030)
[2024-05-28 10:22] LABS: Specific Gravity > 1.030 (1.005-1.030); Sqamous Epithelial <5 /HPF (None Seen); Urine Bacteria 20-50 /HPF (<20); Urine Bilirubin NEGATIVE (Negative); Urine Blood 1+ (Negative); Urine Clarity Extremely Turbid (Clear); Urine Color Yellow (Yellow); Urine Culture Reflex Order NOT NEEDED; Urine Glucose NEGATIVE (Negative); Urine Ketones 2+ (Negative); Urine Microscopic Reflex YN ORDER UMIC; Urine Mucus 4+ /HPF (None Seen); Urine Nitrite NEGATIVE (Negative); Urine Protein 1+ (Negative); Urine RBC <5 /HPF (None Seen); Urine Urobilinogen 1+ (Normal); Urine WBC <5 /HPF (<5); Urine pH 5.5 (5.0-7.0)
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
[2024-05-28 12:22] VITALS: TEMP 97
[2024-05-28 12:42] VITALS: BP 130/72; O2SAT 100
--- NOTE | 2024-05-29 17:00 | EKG ---
Test Date: 2024-05-28 Test Time: 08:49:08 Errand Runner: JASWANT MEASUREMENT RESULTS: Intervals: Rate: 58 IL: 170 QRSD: 80 QT: 406 QTc: 398 [place]: P: 67 IL: 170 QRS: 82 T: 79 INTERPRETIVE STATEMENTS: Sinus bradycardia Nonspecific ST abnormality Abnormal ECG Compared to ECG 09/18/2022 18:39:14 ST (T wave) deviation now present Sinus rhythm no longer present Sinus arrhythmia no longer present Electronically Signed On 05-29-24 16:57:32 CDT by Jaime Mosquera
== END 2024-05-28 12:12 | disposition home or self-care (01) ==
LOC: ER 07:56
DX: R55 Syncope and collapse (principal); E86.0 Dehydration
CPT/HCPCS: 36415; 70450; 71045; 72125; 80048; 80076; 81001; 81025; 83735; 84484; 85025; 85610; 85730; 93005; J7030

== ENCOUNTER 2024-06-12 11:17 | Emergency (ER) | payer SELFPAY ==
[2024-06-12] MEDS ORDERED: CEFTRIAXONE 500 MG/VIAL ONE (11:57)
[2024-06-12 12:22] LABS: Specific Gravity > 1.030 (1.005-1.030); Sqamous Epithelial <5 /HPF (None Seen); Urine Bacteria None Seen /HPF (<20); Urine Bilirubin NEGATIVE (Negative); Urine Blood 1+ (Negative); Urine Clarity Turbid (Clear); Urine Color Yellow (Yellow); Urine Culture Reflex Order NOT NEEDED; Urine Glucose NEGATIVE (Negative); Urine Ketones 1+ (Negative); Urine Microscopic Reflex YN ORDER UMIC; Urine Mucus 4+ /HPF (None Seen); Urine Nitrite NEGATIVE (Negative); Urine Protein 1+ (Negative); Urine RBC <5 /HPF (None Seen); Urine Urobilinogen 2+ (Normal); Urine WBC <5 /HPF (<5)
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
[2024-06-12 13:26] VITALS: O2SAT 100
[2024-06-12 13:29] VITALS: BP 107/75; TEMP 98
[2024-06-15 07:41] LABS: C.trachomatis RNA,TMA Not Detected (Not Detected); N.gonorrhoeae RNA,TMA Not Detected (Not Detected)
== END 2024-06-12 13:21 | disposition home or self-care (01) ==
LOC: ER 11:17
DX: N76.0 Acute vaginitis (principal)
CPT/HCPCS: 81001; 87210; 87490; 87590; 96372; 99284

== ENCOUNTER 2024-07-20 23:49 | Emergency (ER) | payer SELFPAY, OTHER ==
[2024-07-21] MEDS ORDERED: NA CHLORIDE 0.9% 500 ML ONE (00:11)
[2024-07-21] MEDS ORDERED: ONDANSETRON 4 MG/2 ML VIAL ONE (00:11)
[2024-07-21] MEDS ORDERED: KETOROLAC 30 MG/ML INJ ONE (00:11)
[2024-07-21 00:24] LABS: Absolute Eosinophils 0.1 K/uL (0-0.5); Absolute Lymphocytes (CBC) 2.6 K/uL (0.7-4.9); Absolute Monocytes 0.6 K/uL (0.1-1.3); Absolute Neutrophil 6.1 K/uL (1.8-8.0); Basophils % 0.3 % (0-1.3); Eosinophils % 0.8 % (0-4.4); Hematocrit 38.6 % (36.0-45.0); Hemoglobin 13.1 g/dL (12.0-15.0); Lymphocytes % 27.6 % (15.3-44.8); MCH 30.5 pg (27.0-35.0); MCV 89.6 fL (80-100); MPV 9.3 fL (7.6-11.3); Monocytes % 6.3 % (3.3-12.3); Nucleated Red Blood Cells % 0.1 % (0-0); Platelets 164 thou/uL (152-406); RBC Red Blood Cell Count 4.31 M/uL (3.86-4.86); Red Cell Distribution Width 14.3 % (12.1-15.2)
[2024-07-21 00:39] LABS: Albumin 4.4 g/dL (3.4-5.0); Albumin/Globulin Ratio 1.3 (1.1-1.8); Alkaline Phosphatase 60 U/L (45-117); Anion Gap 6.2 mEq/L (5.0-15.0); BUN Blood Urea Nitrogen 12 mg/dL (7-18); Bicarbonate 26 mEq/L (21-32); Bilirubin Total 0.4 mg/dL (0.2-1.0); Globulin 3.3 g/dL (2.3-3.5); Glomerular Filtration Rate 115 ml/min (=/>90); Glucose Level 99 mg/dL (74-106); Potassium 3.2 mEq/L (3.5-5.1); Protein, Total 7.7 g/dL (6.4-8.2); Sodium Level 137 mEq/L (136-145)
[2024-07-21 00:42] LABS: ALT/SGPT < 14 U/L (13-56); AST/SGOT < 10 U/L (15-37)
[2024-07-21 01:05] LABS: Specific Gravity < 1.005 (1.005-1.030); Urine Bilirubin NEGATIVE (Negative); Urine Blood Negative (Negative); Urine Clarity Clear (Clear); Urine Color Colorless (Yellow); Urine Glucose NEGATIVE (Negative); Urine Ketones NEGATIVE (Negative); Urine Microscopic Reflex YN NO UMIC; Urine Nitrite NEGATIVE (Negative); Urine Protein NEGATIVE (Negative); Urine Urobilinogen Normal (Normal); Urine pH 6.5 (5.0-7.0)
[2024-07-21] MEDS ORDERED: POTASSIUM 25 MEQ EFFERV TAB ONE (01:54)
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
--- NOTE | 2024-07-21 02:26 | RAD REPORT ---
EXAM DESCRIPTION: CT HEAD AND CERVICAL SPINE WITHOUT IV CONTRAST 07/21/2024 1:47 AM CDT CLINICAL HISTORY: 38 years, Female, Trauma. COMPARISON: CT Head and cervical spine 05/28/2024. TECHNIQUE: CT imaging of the head and cervical spine were performed without IV contrast. Subsequent 2 -D multiplanar reformats were generated in the sagittal and coronal plane and reviewed. This exam was performed according to our departmental dose-optimization program which includes use of Automated Exposure Control, adjustment of the mA and/or kV according to patient size and/or use of iterative reconstruction technique. Contrast: No intravenous contrast. FINDINGS: Head: Brain: Brain parenchyma as well as the traylor-white matter differentiation demonstrate to be within nor mal limits. There is no evidence for acute intraparenchymal hemorrhage. There is no midline shifts and/or mass effect. No focal areas of hypodensities Ventricles/CSF spaces: Normal size and morphology. Orbits: Normal. Paranasal sinuses: Imaged paranasal sinuses are clear. Mastoids/middle ears: Clear. Bones: Calvarium, skull base, and imaged facial bones are normal. Scalp/facial soft tissues: No acute scalp or soft tissue injury. Cervical spine: Curvature: There is straightening of the mid cervical spine perhaps related to the position and/or mu scle spasm. The alignment, of the vertebral bodies are normal. Bones: There is no evidence of fracture or subluxation. Discs: There is degenerative disc disease with minimal posterior osteophyte complex at C4/C5 C5/C6 an d minimally at C6/C7. There is no evidence for significant spinal canal narrowing and/or stenosis. Joints: The uncovertebral joints demonstrate unremarkable. Soft tissues: There is no prevertebral soft tissue swelling. Sagittal coronal reformatted images demonstrate no subluxation or bony abnormalities. Lung apices: The lung apices demonstrate to be within normal limits. IMPRESSION: No acute intracranial findings. No evidence for acute fracture or subluxation of the cervical spine. Straightening of the mid cervical spine perhaps related to the position and/or muscle spasm. Very minimal early degenerative changes. Electronically signed by: Nirmal Sotomayor MD 07/21/2024 02:11 AM CDT Due to temporary technical issues with the PACS/[employer] reporting system, reports are being eneida d by the in-house radiologist without review as a courtesy to ensure prompt reporting the interpreting radiologist is fully responsible for the content of the report. Transcribed Date/Time: 07/21/2024 2:26 AM
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
[2024-07-21 06:21] VITALS: TEMP 98.1
[2024-07-21 06:22] VITALS: BP 124/87; O2SAT 99
== END 2024-07-21 02:43 | disposition home or self-care (01) ==
LOC: ER 23:49
DX: S16.1XXA Strain of muscle, fascia and tendon at neck level, initial encounter (principal); R29.91 Unspecified symptoms and signs involving the musculoskeletal system; E87.6 Hypokalemia; V49.9XXA Car occupant (driver) (passenger) injured in unspecified traffic accident, initial encounter
CPT/HCPCS: 36415; 70450; 71260; 72125; 74177; 80053; 81003; 81025; 84702; 85025; J2405; J7040; Q9967

== ENCOUNTER 2024-11-29 07:20 | Emergency (ER) | payer OTHER, SELFPAY ==
[2024-11-29] MEDS ORDERED: ONDANSETRON 4 MG/2 ML VIAL ONE (08:04)
[2024-11-29] MEDS ORDERED: MORPHINE 4 MG/ML SYR ONE ×2 (08:04→09:01)
[2024-11-29] MEDS ORDERED: NA CHLORIDE 0.9% 1,000 ML ONE (08:05)
[2024-11-29] MEDS ORDERED: FAMOTIDINE 20 MG/2 ML VIAL IV ONE (08:05)
[2024-11-29 08:19] LABS: Absolute Eosinophils 0.1 K/uL (0-0.5); Absolute Lymphocytes (CBC) 1.8 K/uL (0.7-4.9); Absolute Monocytes 0.3 K/uL (0.1-1.3); Absolute Neutrophil 4.4 K/uL (1.8-8.0); Basophils % 0.4 % (0-1.3); Eosinophils % 1.2 % (0-4.4); Hematocrit 44.7 % (36.0-45.0); Hemoglobin 14.8 g/dL (12.0-15.0); MCH 29.7 pg (27.0-35.0); MCHC 33.2 g/dL (32.0-36.0); MCV 89.3 fL (80-100); MPV 9.3 fL (7.6-11.3); Neutrophils % 66.4 % (41.7-73.7); Nucleated Red Blood Cells % 0.1 % (0-0); Platelets 175 thou/uL (152-406); Red Cell Distribution Width 13.6 % (12.1-15.2)
[2024-11-29 08:22] LABS: Specific Gravity 1.005 (1.005-1.030); Sqamous Epithelial <5 /HPF (None Seen); Urine Bacteria <20 /HPF (<20); Urine Bilirubin NEGATIVE (Negative); Urine Blood Negative (Negative); Urine Clarity Clear (Clear); Urine Color Colorless (Yellow); Urine Culture Reflex Order NOT NEEDED; Urine Glucose NEGATIVE (Negative); Urine Ketones NEGATIVE (Negative); Urine Microscopic Reflex YN ORDER UMIC; Urine Nitrite NEGATIVE (Negative); Urine Protein NEGATIVE (Negative); Urine RBC None Seen /HPF (None Seen); Urine Urobilinogen Normal (Normal); Urine WBC <5 /HPF (<5)
[2024-11-29 08:23] LABS: Specific Gravity 1.005 (1.005-1.030)
[2024-11-29 08:38] LABS: Albumin 4.5 g/dL (3.4-5.0); Anion Gap 8.5 mEq/L (5.0-15.0); Bilirubin Total 0.4 mg/dL (0.2-1.0); Globulin 4.4 g/dL (2.3-3.5); Potassium 3.5 mEq/L (3.5-5.1); Protein, Total 8.9 g/dL (6.4-8.2)
--- NOTE | 2024-11-29 08:59 | RAD REPORT ---
EXAMINATION: CT ABDOMEN AND PELVIS WITH CONTRAST CLINICAL INDICATION: ABD PAIN TECHNIQUE: CT abdomen and pelvis was performed, after the administration of IV contrast, as [facility]. Axial, sagittal and coronal reconstructions were obtained. One or more of the following dose reduction techniques were used: Automated exposure control, adjustment of the mA and k V according to patient size, and iterative reconstruction. Unless otherwise specified, incidental findings do not require dedicated imaging follow-up. COMPARISON: 09/18/2022 FINDINGS: LOWER CHEST: The visualized lung bases are clear. LIVER: Normal in size and contour. No focal lesion. Cholecystectomy clips. SPLEEN: Normal size. No focal lesion. PANCREAS: No mass, ductal dilation, or vernon-pancreatic fluid. ADRENALS: Normal; no mass. KIDNEYS: Normal size and contour. No hydronephrosis. GASTROINTESTINAL TRACT: No evidence of free air, significant intra-abdominal free fluid, bowel obstru ction or abscess. APPENDIX: Normal appendix. LYMPH NODES: No lymphadenopathy. MUSCULOSKELETAL: No acute or suspicious osseous abnormality. ADDITIONAL FINDINGS: Small volume of pelvic free fluid. Endometrial fluid is present. IMPRESSION: No acute or concerning abnormalities seen in the abdomen or pelvis.
[2024-11-29] MEDS ORDERED: HYDROMORPHONE HCL 1 MG/ML INJ ONE (10:48)
[2024-11-29] MEDS ORDERED: PROMETHAZINE INJ 25 MG/ML AMP ONE (12:03)
--- NOTE | 2024-11-29 12:47 | RAD REPORT ---
EXAMINATION: MR CHOLANGIOGRAM CLINICAL INDICATION: Female, 38 years old. abdominal pain TECHNIQUE: Multiplanar, multisequence MR imaging of the abdomen without intravenous contrast, and wit h specific attention to the biliary system. Unless otherwise specified, incidental findings do not require dedicated imaging follow-up. 3D MIP reconstruction performed. COMPARISON: Same day CT study FINDINGS: GALLBLADDER: Surgically absent. BILE DUCTS: No biliary ductal dilatation. Pneumobilia suspected. LIVER: Normal in size, contour, and signal without evidence of fatty infiltration or iron deposition. No focal lesion. PANCREAS: Normal signal. No mass, ductal dilation, or vernon-pancreatic fluid. LYMPH NODES: No lymphadenopathy. ADDITIONAL FINDINGS: Trace pleural fluid bilaterally. IMPRESSION: Pneumobilia is seen in the common bile duct without pathologic biliary dilatation. No evidence of nia iary obstruction. Status post cholecystectomy.
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
[2024-11-30 04:27] VITALS: TEMP 98.4
[2024-11-30 04:35] VITALS: O2SAT 99
[2024-11-30 04:36] VITALS: BP 97/80
--- NOTE | 2024-12-02 12:12 | EKG ---
Test Date: 2024-11-29 Test Time: 10:30:22 Television Journalist: MATT MEASUREMENT RESULTS: Intervals: Rate: 59 MS: 174 QRSD: 86 QT: 414 QTc: 409 Gooding: P: 72 MS: 174 QRS: 81 T: 76 INTERPRETIVE STATEMENTS: Sinus bradycardia Otherwise normal ECG Compared to ECG 05/28/2024 08:49:08 ST (T wave) deviation no longer present Electronically Signed On 12-02-24 12:10:35 FUNERAL PREARRANGEMENT COUNSELOR by Jaime Mosquera
== END 2024-11-29 13:28 | disposition home or self-care (01) ==
LOC: ER 07:20
DX: K30 Functional dyspepsia (principal)
CPT/HCPCS: 36415; 74177; 74181; 80053; 81001; 81025; 83690; 85025; 93005; 96361; 96374; 96375; 99285; J1171; J2405; J2550; J7030; Q9967

== ENCOUNTER 2025-02-06 07:58 | Emergency (ER) | payer SELFPAY ==
[2025-02-06] MEDS ORDERED: FAMOTIDINE 20 MG/2 ML VIAL IV ONE (08:19)
[2025-02-06] MEDS ORDERED: ONDANSETRON 4 MG/2 ML VIAL ONE (08:19)
[2025-02-06] MEDS ORDERED: MAGNES/ALUMIN/SIMET 30ML UCUP ONE (08:19)
[2025-02-06] MEDS ORDERED: LIDOCAINE VISCOUS 2% 10ML ORAL SOLN ONE (08:20)
[2025-02-06 08:31] LABS: Absolute Eosinophils 0.1 K/uL (0-0.5); Absolute Lymphocytes (CBC) 1.8 K/uL (0.7-4.9); Absolute Monocytes 0.4 K/uL (0.1-1.3); Basophils % 0.5 % (0-1.3); Eosinophils % 1.4 % (0-4.4); Hemoglobin 13.7 g/dL (12.0-15.0); Lymphocytes % 34.5 % (15.3-44.8); MCH 30.1 pg (27.0-35.0); MCHC 34.3 g/dL (32.0-36.0); MCV 87.8 fL (80-100); MPV 9.5 fL (7.6-11.3); Neutrophils % 56.6 % (41.7-73.7); Nucleated Red Blood Cells % 0.1 % (0-0); Platelets 200 thou/uL (152-406); RBC Red Blood Cell Count 4.55 M/uL (3.86-4.86); Red Cell Distribution Width 14.5 % (12.1-15.2)
[2025-02-06 08:56] LABS: Albumin 3.7 g/dL (3.4-5.0); Anion Gap 4.6 mEq/L (5.0-15.0); Bilirubin Total 0.4 mg/dL (0.2-1.0); Globulin 3.7 g/dL (2.3-3.5); Potassium 3.6 mEq/L (3.5-5.1); Protein, Total 7.4 g/dL (6.4-8.2)
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
[2025-02-06] MEDS ORDERED: HYDROCODONE/APAP 5/325 MG TAB ONE (09:31)
[2025-02-06 09:47] LABS: Specific Gravity 1.008 (1.005-1.030); Urine Bilirubin NEGATIVE (Negative); Urine Blood Negative (Negative); Urine Clarity Clear (Clear); Urine Color Colorless (Yellow); Urine Glucose NEGATIVE (Negative); Urine Ketones NEGATIVE (Negative); Urine Microscopic Reflex YN NO UMIC; Urine Nitrite NEGATIVE (Negative); Urine Protein NEGATIVE (Negative); Urine Urobilinogen Normal (Normal)
[2025-02-06 10:18] VITALS: O2SAT 100
[2025-02-06 10:20] VITALS: BP 132/80
== END 2025-02-06 09:38 | disposition home or self-care (01) ==
LOC: ER 07:58
DX: K29.00 Acute gastritis without bleeding (principal); K21.9 Gastro-esophageal reflux disease without esophagitis
CPT/HCPCS: 36415; 80053; 81003; 81025; 83690; 85025; 96374; 96375; 99284; J2405

== ENCOUNTER 2025-07-02 09:13 | Emergency (ER) | payer SELFPAY ==
[2025-07-02] MEDS ORDERED: HYDROCODONE/APAP 5/325 MG TAB ONE (09:15)
[2025-07-02] MEDS ORDERED: KETOROLAC 30 MG/ML INJ ONE (09:15)
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
[2025-07-02 10:01] VITALS: BP 109/77; TEMP 98.5; O2SAT 100
== END 2025-07-02 09:43 | disposition home or self-care (01) ==
LOC: ER 09:13
DX: N64.4 Mastodynia (principal); R22.2 Localized swelling, mass and lump, trunk
CPT/HCPCS: 96372; 99284; J1885